=== PATIENT | male | born 1935 | race Caucasian/White ===

== ENCOUNTER 2019-08-19 18:06 | Inpatient (IN) | payer OTHER, BC ==
[~2019-08-19] VITALS: Ht 182.9 cm; Wt 83.9 kg
[2019-08-19 18:12] VITALS: BP 101/53
[2019-08-19 18:58] LABS: ABSOLUTE NEUTROPHILS 6.7 thou/uL (1.4-8.2); BASOPHILS 0.3 % (0.0-2.0); HEMATOCRIT 42.1 % (42.0-52.0); HEMOGLOBIN 13.5 gm/dL (14.0-18.0); LYMPHOCYTES 4.6 % (24.0-44.0); MCH 30.7 pg (26.0-34.0); MCHC 32.1 g/dL (28.0-37.0); MCV 95.7 fL (80.0-100.0); MONOCYTES 7.5 % (1.0-8.0); PLATELET COUNT 175 thou/uL (150-400); POLYS 87.6 % (36.0-66.0); RDW 13.2 % (10.5-14.5); WBC 7.7 thou/uL (4.0-11.0)
[2019-08-19 19:44] LABS: CALCIUM 7.8 mg/dL (8.5-10.1); POTASSIUM 3.9 mmol/L (3.5-5.1)
[2019-08-19 19:51] LABS: ALBUMIN 2.6 g/dL (3.4-5.0); TOTAL BILIRUBIN 0.4 mg/dL (<0.1-1.0)
[2019-08-19 20:25] VITALS: BP 101/53
[2019-08-19 21:12] VITALS: BP 108/66
--- NOTE | 2019-08-20 05:42 | NUR ---
New p from the ER admitted with a dx of R lower lobe PNA. Pt is a&o to self. 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 pt is incont of bladder and bowel. staff to anticipate pt's need. pt answers to yes and no questions. no s/s of distress. fall prec in place. will cont to monitor
[2019-08-20] MEDS ORDERED: ONDANSETRON HCL4 M2 PO (07:53)
[2019-08-20] MEDS ORDERED: DOXAZOSIN MESYLA1 MG PO (07:54)
[2019-08-20] MEDS ORDERED: PACERONE 200 M200 M1 PO (07:54)
[2019-08-20] MEDS ORDERED: XARELTO15 MG PO (07:54)
[2019-08-20] MEDS ORDERED: DIVALPROEX SOD125 MG PO (07:54)
[2019-08-20] MEDS ORDERED: FLONASE 0.05%50 MCG NARES (07:55)
[2019-08-20] MEDS ORDERED: WELLBUTRIN 100100 MG PO (07:55)
[2019-08-20] MEDS ORDERED: LATANOPROST 0.2.5 ML OPHTHALMIC (07:55)
[2019-08-20] MEDS ORDERED: DIVALPROEX SOD125 M1 PO (07:56)
[2019-08-20 08:00] VITALS: BP 122/67
--- NOTE | 2019-08-20 13:46 | NUR ---
PT A&OX4, VSS, DENIES PAIN. ANTIBIOTICS GIVEN ORDER. PATIENT HAS EXTERNAL CATH. PT/OT IN TO WORK WITH PATIENT. NO SIGNS OF DISTRESS. WILL CONTINUE TO MONITOR.
[2019-08-20 15:00] VITALS: BP 129/60
[2019-08-20 19:44] VITALS: BP 129/74
--- NOTE | 2019-08-20 19:45 | NUR ---
PT DOES NOT LIKE PUREED DIET AND IS EATING ABOUT 15 PERCENT OF MEALS
[2019-08-20 21:16] LABS: URINE BILIRUBIN NEGATIVE (Negative); URINE BLOOD TRACE (Negative); URINE CLARITY SL CLOUDY; URINE COLOR YELLOW; URINE GLUCOSE-RANDOM* NEGATIVE (Negative); URINE KETONES TRACE (Negative); URINE LEUKOCYTES-REFLEX NEGATIVE (Negative); URINE NITRITE-REFLEX NEGATIVE (Negative); URINE PROTEIN (DIPSTICK) TRACE (Negative)
--- NOTE | 2019-08-21 03:08 | NUR ---
PT CARE ASSUMED AT 1915 WITH PT IN BED.PT IS ALERT BUT HAS EXPRESSIVE APHASIA.PT IS INCONTINENT TO B/B.PT WAS BLADDER SCANNED AND HAD MORE THAN 500ML .PT WAS STRAIGHT CATHETER AND HAD AN OUTPUT OF 500CC.PT APPEARED TO BE IN NO DISTRESS.WILL CONTINUE TO MONITOR PER POC
--- NOTE | 2019-08-21 07:18 | H ---
[facility] [place] [address] HISTORY AND PHYSICAL Name: NETTIE COLLINS Room #: 462-P [facility] IN M.R.#: [id number] Admission: 08/19/19 Attend Phys: Dixon Shearer MD Discharge: Date of : 33 Report #: [id number] THIS REPORT FOR: cc: Dixon Shearer MD,Dixon Shearer,Dixon STEVENS ~ CC: Dixon Shearer HISTORY OF PRESENT ILLNESS: The patient is an 84-year-old male who was brought to the Emergency Room for an episode of nausea and vomiting. In addition to fever, the patient has been having some malaise. The patient is not able to provide me with any information because of his underlying CVA with expressive aphasia. The patient is able to tell me by shaking his head yes and no. The patient indicated that he is not having any headache. He is not having any chest pain. He is not having any abdominal pain. He said that he has been having some coughing. PAST MEDICAL HISTORY: Significant for cerebral infarct with right hemiparesis, dysphagia, aphasia, muscle weakness, difficulty walking, bipolar disorder, and glaucoma. The patient has a history of atrial fibrillation. MEDICATIONS: Reviewed and reconciled. ALLERGIES: No known drug allergies. SOCIAL HISTORY: The patient denies any smoking, alcohol use or drug use. FAMILY HISTORY: Unobtainable. REVIEW OF SYSTEMS: Negative besides what was mentioned above. PHYSICAL EXAMINATION: VITAL SIGNS: On arrival to the hospital showed a temperature of 99.9, pulse 73, respirations 23, blood pressure 101/53. HEAD: Unremarkable. NEUROLOGIC: The patient has wet mucous membrane. He does not have any drainage coming from the ears or nose. NECK: Supple. LUNGS: Clear to auscultation with very poor respiratory effort. CARDIAC: S1, S2, without any murmur or gallop. ABDOMEN: Benign. No tenderness, no rigidity, no rebound tenderness. EXTREMITIES: Without any edema. The patient has flaccid right side. LABORATORY DATA: The patient's CBC with diff showed white count of 7.7, hemoglobin 13.5, hematocrit 42.1, platelet count 175, neutrophils are 87%. Troponin less than 0.06. Lactic acid is 2.1. The patient's chest x-ray showed hazy interstitial and airspace opacities are seen on the right lower lung zone [address] [address] HISTORY AND PHYSICAL Name: NETTIE COLLINS Room #: 462-P [facility] IN [facility]#: [id number] Admission: 08/19/19 Attend Phys: Dixon Shearer MD Discharge: Date of : 33 Report #: [id number] compatible with pneumonia. The patient's metabolic panel showed a sodium of 143, potassium 3.9, chloride 108, bicarbonate 31, anion gap 4, BUN 31, creatinine 1, glucose 107, AST 66, calcium 7.8, total protein 5, albumin 2.6. Influenza A and B was negative. Repeated lactic acid is 1.1. ASSESSMENT AND PLAN: 1. Right lower lobe pneumonia. 2. Status post cerebrovascular accident with right hemiparesis. 3. Atrial fibrillation. 4. Glaucoma. The patient was admitted to the hospital with the above-mentioned diagnoses. The patient will be started on Zosyn in addition to IV hydration. The patient to have repeated blood test in the morning. The patient to start physical therapy, occupational therapy and speech therapy. We will resume the patient's home medications. I will go ahead and do a KUB on the patient because of his nausea and vomiting that started. <ELECTRONICALLY SIGNED> By: Dixon Shearer MD 08/21/19 0718 [id number] Dixon Shearer MD /nt
[2019-08-21 07:56] VITALS: BP 118/60
[2019-08-21 15:29] VITALS: BP 123/64
--- NOTE | 2019-08-21 20:17 | NUR ---
PATIENT ALERT AND ORIENTED TO SELF AND HAS DIFFICUTLY SPEAKING AND SEEMS TO UNDERSTAND AND FOLLOWS COMMANDS. THIS IS A VERY PLEASANT GENTLEMAN WHO SOMETIMES GETS VERY FRUSTRATED WHEN TRYING TO EXPRESS HIMSELF AND USES HAND GESTURES. SPOKE WITH PATIENT SPOUSE X 2 TODAY AND LEFT SEVERAL MESSAGES WITH SON, GIO REGARDING PATIENT MOVING TO NEW ROOM, 445.
[2019-08-21 20:25] VITALS: BP 122/55
--- NOTE | 2019-08-22 03:28 | NUR ---
ASSESSED AT START OF SHIFT. PT IS A&OX1 TO SELF. ANSWERS TO YES OR NO QUESTIONS AND USES HAND GESTURES WHILE FUSTRATED. HAS EXPRESSIVE APHASIA DUE TO HX OF CVA. PT IS INCONITINENT OF B/B HAD X4 INCOONTINENCE THIS SHIFT. PULLED OUT IV. NEW IV INSERTED IN LFT UA 22 G. IV INTACT AND FLUIDS INFUISING. CRTICAL LAB RESULT CALLED FOR GRAM + COCCI DR LI AWARE STATED TO CONT ZOSYN ADMINISTRATION. PT ON PURED DIET AND TAKES PILLS WITH APPLE SAUCE. FALL PREC IN PLACE AND WILL CONT TO MONITOR TILL EOS.
[2019-08-22 05:55] VITALS: BP 121/60
[2019-08-22 08:00] VITALS: BP 136/74
[2019-08-22 09:35] LABS: HEMATOCRIT 38.3 % (42.0-52.0); HEMOGLOBIN 12.5 gm/dL (14.0-18.0); MCHC 32.6 g/dL (28.0-37.0); MCV 95.1 fL (80.0-100.0); PLATELET COUNT 130 thou/uL (150-400); RBC 4.02 mil/uL (4.50-6.00); RDW 13.5 % (10.5-14.5); WBC 3.9 thou/uL (4.0-11.0)
[2019-08-22 09:38] LABS: CALCIUM 7.7 mg/dL (8.5-10.1); CREATININE 0.7 mg/dL (0.7-1.3); POTASSIUM 3.9 mmol/L (3.5-5.1)
[2019-08-22 10:42] LABS: ABSOLUTE NEUTROPHILS 2.6 thou/uL (1.4-8.2); PLATELET ESTIMATE NORMAL
--- NOTE | 2019-08-22 14:59 | NUR ---
PT ADMITTED RELATED TO PNEUMONIA,FEVER. CM REVIEWED CHART AND SPOKE WITH CARE TEAM. CM CALLED AND SPOKE WITH PT'S SPOUSE WHO WAS LISTED ON SHEETS SPOKESPERSON #1 OUSMANE SHE RESIDES AT [facility]. SHE INDICATED THAT [facility]. SHE STATED THAT PT HAD 2 STROKES AND THAT SHE ISN'T PLEASED WITH THE CARE AND CONDITIONS FOR PT AT [facility]. SHE INDICATED THAT SON AND DTR ARE INVOLVED IN THEIR CARE. CM CALLED PT'S SON JOSIANE WHO IS LISTED DPOA AND LEFT VM. CM CALLED AND SPOKE WITH PT'S DTR VERONIKA AND SHE INDICATED THAT JOSIANE IS THEIR PARENTS GUARDIAN AND MAKES DESISIONS. CM AWAITING RESPONSE. CM TO FOLLOW INDICATED WITH DC PLANNING.
[2019-08-22 15:45] VITALS: BP 119/66
--- NOTE | 2019-08-22 19:50 | NUR ---
PT A&OX2. RIGHT SIDE WEAKNESS NOTED WITH FACIAL DROOP AND EXPRESSIVE APHASIA. IV WAS REPLACED IN L FA AFTER PT PULLED OUT THE PRIOR. IS INCONT. OF B/B. CONDOM CATH WAS PLACED.
--- NOTE | 2019-08-22 23:18 | NUR ---
CONTACTED PHARMACY ABOUT MEDS WHICH NEED TO BE CRUSHED, WILL HOLD FLOMAX FOR NOW PENDING SUBSTITUTION, AND PHARMACY WILL SEND ORAL SUSPENSION OF ABX.
[2019-08-22 23:30] VITALS: BP 116/53
[2019-08-23 05:00] VITALS: BP 123/71
--- NOTE | 2019-08-23 05:29 | NUR ---
PT AOX1,SELF. PT DENIES PAIN AND SOA. PT NOTED TO BE IRRITABLE AT BEGINNING OF SHIFT WHEN ATTEMPTING TO COMMUNICATE. PROVIDED COMMUNICATION BOARD DUE TO PT EXPRESSIVE APHASIA. PT TOLERATING PO INTAKE OF NECTAR THICK FLUIDS ON PUREED DIET. PT TAKING PO MEDS CRUSHED IN APPLESAUCE. PT CONTINUES TO REST IN BED. ENCOURAGED FREQUENT REPOSITIONING. PT NOTED TO REST WITHOUT INTERRUPTION OR OBSERVATION OF PAIN OR DISCOMFORT. ENCOURAGED PT TO NOTIFY STAFF FOR ALL NEEDS AND CONCERNS. ROOM REMAINS CLOSE TO NURSES STATION. CALL LIGHT WITHIN REACH, BED ALARM ON, BED IN LOWEST POSITION. WILL CONTINUE TO MONITOR.
[2019-08-23] MEDS ORDERED: AUGMENTIN400 MG/53 PO (07:30)
[2019-08-23] MEDS ORDERED: FLOMAX0.4 MG PO (07:31)
[2019-08-23] MEDS ORDERED: DEPAKOTE SPRIN125 MG PO (07:32)
[2019-08-23] MEDS ORDERED: CULTURELLE KID1 EAC1 PO (07:33)
[2019-08-23 08:25] VITALS: BP 136/63
[2019-08-23 08:44] VITALS: BP 136/63
--- NOTE | 2019-08-23 12:25 | NUR ---
PT DISCHARGING TODAY TO [facility] FOR SKILLED STAY FAXED DC ORDERS/SUMMARY TO FACILITY SPOKE WITH NOMAN IN ADM. SHE RECEIVED DC ORDERS AND [facility]. LEFT MSG WITH PT'S SON (GIO) OF DC AND TIME OF TRANSPORT AND TO CALL ME TO CONFIRM HE GOT MESSAGE. UNIT NOTIFIED AND CHART COPY PER US RN TO CALL REPORT [phone].
--- NOTE | 2019-08-23 12:27 | NUR ---
PT DISCHARGIN TODAY TO [facility] SPOKE WITH NOMAN IN ADM SHE RECEIVED ORDERS AND ARRANGED TRANSPORT BY [facility] FOR 1400 TODAY. NOTIFIED PT'S SON (GIO) OF DC AND TIME OF TRANSPORT AND TO CALL ME BACK TO CONFIRM HE GO MY MESSAGE. UNIT NOTIFIED AND CHART COPY PER US. RN TO CALL REPORT TO [phone].
--- NOTE | 2019-08-23 13:52 | NUR ---
CARE TEAM INDICATED THAT PT IS MEDICALLY STABLE TO DISCHARGE TO [facility] THIS DAY. CHART COPY ORDERED. ORDERS FAXED. DC DEPOSIT CLERK NOTIFIED PT'S GUARDIAN/SON. [facility] TRANSPORT ARRANGED FOR 1400. NURSE GIVEN NUMBER FOR REPORT. NO OTHER CM INTERVENTION INDICATED. CASE CLOSED.
--- NOTE | 2019-08-23 14:30 | NUR ---
DC ORDERS RECEIVED. IV REMOVED FROM L FA. CHART COPY AND ORDERS SENT WITH PT. REPORT CALLED TO NURSE VIZCAINO AT [facility]. NURSE WAS AWARE OF OPEN AREAS TO SACRUM AND BUTTOCK. KEMAR NIETO PICKED UP PT.
== END 2019-08-23 16:13 | DRG 178 ==
LOC: ER 18:06 → 4S 19:51 → EROBS 19:51 → 4W 20:54 → 4S 08-21 17:47
PROVIDERS: Emergency Medicine Emergency Medical Services; ADMIT Internal Medicine
DX: J69.0 Pneumonitis due to inhalation of food and vomit (principal); I69.351 Hemiplegia and hemiparesis following cerebral infarction affecting right dominant side; E44.0 Moderate protein-calorie malnutrition; R33.9 Retention of urine, unspecified; K59.00 Constipation, unspecified; F31.9 Bipolar disorder, unspecified; H40.9 Unspecified glaucoma; I48.91 Unspecified atrial fibrillation; Z79.01 Long term (current) use of anticoagulants; Z79.899 Other long term (current) drug therapy; I69.320 Aphasia following cerebral infarction; I69.391 Dysphagia following cerebral infarction; R13.10 Dysphagia, unspecified
CPT/HCPCS: 10040; 10195

== ENCOUNTER 2019-09-08 15:48 | Inpatient (IN) | payer OTHER, BC ==
[~2019-09-08] VITALS: Ht 177.8 cm; Wt 60.4 kg
--- NOTE | ~2019-09-08 | EMS ---
[address] [address] EMS Patient Care Report Name: NETTIE COLLINS Room #: REG [facility] [place]#: [id number] Admission: 09/08/19 Attend Phys: Discharge: Date of : 33 Report #: [id number] THIS REPORT FOR: //name// Report Transmitted: 09/08/2019 16:10 EMS Care Summary [place], [place] Incident [id number] @ 09/08/2019 15:11 Incident Location [address] Patient NETTIE COLLINS Male, 84 Years 1935 Patient Address [address] [place] [address] Patient History Hypertension (HTN),Urinary Tract Infection (UTI), Patient Allergies No known allergies, Chief Complaint ALTERED MENTAL STATUS Disposition Transported No Lights/Nova Dispatch Reason Breathing Problem Transported To [facility] Narrative ARRIVED ON SCENE AT A CUSTODIAL FOR A 84 YEAR OLD MALE WITH ALTERED MENTAL STATUS AND A FEVER. EMS WAS CALLED FOR FEVER, COUGH, AND SHORTNESS OF BREATH SINCE LAST NIGHT. PUMPER AND EMS ARRIVED ON SCENE. EMS MADE ENTRY IN PROPER PPE TO MITIGATE POTENTIAL EXPOSURES. PT CONTACT WAS MADE WITH FACILITY STAFF. PT HAD AN ALTERED MENTAL STATUS AND WAS UNABLE TO COMMINUICATE WITH EMS BUT [address] [address] EMS Patient Care Report Name: NETTIE COLLINS Room #: REG [facility] [place]#: [id number] Admission: 09/08/19 Attend Phys: Discharge: Date of : 33 Report #: [id number] FACILITY STAFF STATED THIS WAS HIS NORMAL. PT WAS NOT COUGHING AND SHOWED NO SIGNS OF RESIRATORY DISTRESS ON SCENE. PT HAD CLEAR LUNG SOUNDS AND WAS BREATHING AT A NORMAL RATE. EMS CLEARED THE PUMPER TO GO BACK INTO SERVICE. PT WAS TRANSFERED OVER TO THE COT IN A POSITION OF COMFORT AND SECURED VIA 2 SEATBELTS. PT HAD A MASK PLACED ON HIM AND WAS HOOKED UP TO THE MONITOR FOR A SET OF BASELINE VITALS AND TRANSPORTED TO AND INTO THE AMBULANCE. PT WAS TRANSPORTED TO [facility] PER PT CHOICE WITH NO CHANGES EN ROUTE. PT WAS TAKEN TO ER BED 21 WHERE TRANSPORT REPORT WAS GIVEN TO THE RECEIVING STAFF. ER NURSE SIGNED FOR TRANSFER OF CARE AND EMS WENT BACK INTO SERVICE. Initial Vitals @15:39P: 77,R: 18,BP: 148/74,Pain: 0/10,GCS: 10,CO: 5,SpO2: 95,Revised Trauma: 11,KS Suspected: false @15:29P: 73,R: 18,BP: 156/76,Pain: 0/10,GCS: 10,Glucose: 96,CO: 9,SpO2: 96,Revised Trauma: 11,KS Suspected: false Assessments @15:24MENTAL:No Abnormalities,SKIN:HEENT:Eyes: Right Pupil: 3-mm,Eyes: Left Pupil: 3-mm,Head/Face: No Abnormalities,Neck/Airway: No Abnormalities,LUNG SOUNDS:General: No Abnormalities,ABDOMEN:General: No Abnormalities,PELVIS//GI:No Abnormalities,EXTREMITIES:Left Arm: No Abnormalities,Right Arm: No Abnormalities,Left Leg: No Abnormalities,Right Leg: No Abnormalities,PULSE:NEURO:No Abnormalities,@15:35 Impression Altered Mental Status Procedures @15:24ALS AssessmentResponse: UnchangedSucceeded@15:33Saline Lock 0cc (18 ga) Site: Antecubital-LeftResponse: UnchangedFailed Timeline 15:10,Call Received 15:10,Dispatch Notified 15:11,Dispatched 15:12,En Route 15:19,On Scene 15:24,At Patient 15:24,ALS Assessment,Response: UnchangedSucceeded, 15:29,BP: 156/76 M,PULSE: 73,RR: 18 R,SPO2: 96 Ox,ETCO2: ,B,PAIN: 0,GCS: 10, 15:33,Saline Lock 0cc 18 ga Site: Antecubital-Left,Response: UnchangedFailed, 15:34,Depart Scene 15:39,BP: 148/74 M,PULSE: 77,RR: 18 R,SPO2: 95 Ox,ETCO2: ,BG: ,PAIN: 0,GCS: 10, 15:40,At Destination 15:43,Call Closed [facility] [address] [place] [address] EMS Patient Care Report Name: NETTIE COLLINS Room #: REG [place]#: [id number] Admission: 09/08/19 Attend Phys: Discharge: Date of : 33 Report #: [id number] Disclaimer v1.1 Copyright 2020 [employer] This EMS Care Summary contains data elements from the applicable legal record (which may be displayed differently). It is designed to provide pertinent information for the following purposes: continuity of care, clinical quality, and state data reporting. The complete legal record is available to ED staff and administrators of the receiving hospital in [employer]'s Patient Tracker. All data is provided "as is."
[~2019-09-08 15:48] MED LIST: AUGMENTIN400 MG/53 PO; CULTURELLE KID1 EAC1 PO; DEPAKOTE SPRIN125 MG PO; DIVALPROEX SOD125 M1 PO; DIVALPROEX SOD125 MG PO; DOXAZOSIN MESYLA1 MG PO; FLOMAX0.4 MG PO; FLONASE 0.05%50 MCG NARES; LATANOPROST 0.2.5 ML OPHTHALMIC; ONDANSETRON HCL4 M2 PO; PACERONE 200 M200 M1 PO; WELLBUTRIN 100100 MG PO; XARELTO15 MG PO
[2019-09-08 15:54] VITALS: BP 129/62
[2019-09-08 16:32] LABS: HEMATOCRIT 37.2 % (42.0-52.0); HEMOGLOBIN 12.4 gm/dL (14.0-18.0); MCH 31.6 pg (26.0-34.0); MCHC 33.4 g/dL (28.0-37.0); MCV 94.8 fL (80.0-100.0); PLATELET COUNT 203 thou/uL (150-400); RBC 3.92 mil/uL (4.50-6.00); RDW 13.9 % (10.5-14.5); WBC 4.6 thou/uL (4.0-11.0)
[2019-09-08 16:40] LABS: CALCIUM 8.5 mg/dL (8.5-10.1); CREATININE 0.9 mg/dL (0.7-1.3); POTASSIUM 3.9 mmol/L (3.5-5.1)
[2019-09-08 16:46] LABS: DIRECT BILIRUBIN 0.1 mg/dL (<0.1-0.2); TOTAL BILIRUBIN 0.4 mg/dL (<0.1-1.0); TOTAL PROTEIN 5.8 g/dL (6.4-8.2)
[2019-09-08 16:56] LABS: ABSOLUTE NEUTROPHILS 3.5 thou/uL (1.4-8.2); PLATELET ESTIMATE NORMAL
[2019-09-08 17:46] LABS: URINE BILIRUBIN NEGATIVE (Negative); URINE BLOOD TRACE (Negative); URINE CLARITY CLEAR; URINE COLOR YELLOW; URINE GLUCOSE-RANDOM* NEGATIVE (Negative); URINE KETONES TRACE (Negative); URINE LEUKOCYTES-REFLEX NEGATIVE (Negative); URINE NITRITE-REFLEX NEGATIVE (Negative); URINE PROTEIN (DIPSTICK) NEGATIVE (Negative); URINE SPECIFIC GRAVITY >= 1.030 (1.005-1.035); URINE UROBILINOGEN 0.2 E.U./dl (0.2-1.0)
[2019-09-08 18:53] VITALS: BP 128/77
[2019-09-08 19:15] VITALS: BP 114/84
[2019-09-08 19:41] VITALS: BP 120/68
[2019-09-08] MEDS ORDERED: SENNA PLUS TAB1 EACH PO (20:40)
[2019-09-09 03:26] VITALS: BP 121/73
--- NOTE | 2019-09-09 03:51 | NUR ---
ASSUMED CARE OF PATIENT AT 1930. COMPLETED ADMISSION HISTORY AND ASSESSMENT. INITIATED PATIENT CARE PLAN. PATIENT HAS LOW GRADE TEMP OF 99.3. NO SOA OBSERVED AND OXYGEN SATURATION IS BETWEEN 96-98% ON RA. PLACED AN EXTERNAL CATHETER FOR ACCURATE I&O.
[2019-09-09 08:20] VITALS: BP 133/66
[2019-09-09 11:35] VITALS: BP 143/72
--- NOTE | 2019-09-09 13:16 | NUR ---
INITIAL ASSESSMENT: Received consult. SUMEET reviewed chart and spoke with nursing. Pt was admitted from [facility] due to fevers. Pt is currently in Enhanced Isolation to r/o COVID-19. Pt with positive blood cultures. Pt is nonverbal. SUMEET left voice message or pt's son, Jhonny, to provide update and discuss discharge plan. product planner faxed clinical info to [facility] for review. SUMEET confirmed with Ana in admissions, that [facility] is able to accept pt back over the weekend if pt is medically stable for discharge. ameya will need COVID-19 results faxed to them, as well as the finalized discharge orders/summary. Staff to contact Ana over the weekend to coordinate discharge. SUMEET is available to assist as needed with discharge planning. JERAMIE-- (Ana) Report: [phone]
--- NOTE | 2019-09-09 13:28 | NUR ---
FAXED CLINICAL UPDATE TO JERAMIE DELEON SPOKE WITH NOMAN IN ADM SHE RECEIVED UPDATE. DP TO FOLLOW.
[2019-09-09 16:42] VITALS: BP 107/62
--- NOTE | 2019-09-09 18:49 | NUR ---
ASSUMED CARE AT 0700. SPOKE TO PRISCILLA FROM [facility] THIS AM. CONFIRMED THAT PT WAS POSITIVE FOR INFLUENZA B AND NOT INFLUENZA A REPORTED. SHE REPORTED THAT PT WAS NEGATIVE FOR RSV. THIS RN INFORMED PRISCILLA THAT PT HAS BEEN SWABBED FOR COVID-19 AND WAITING FOR RESULTS. DHEERAJ, RN SPOKE TO DR. LI THIS AM REGARDING GRAM POSITIVE BLOOD CULTURES. AZITHROMYCIN AND ROCEPHIN GIVEN PER ORDERS. PT HAS BEEN FEBRILE THIS SHIFT AND GIVEN TYLENOL PER ORDERS. PT HAS BEEN AFEBRILE AFTER NOON VITALS. PT'S SON, GIO UPDATED ON PT'S STATUS. PT ON ROOM AIR AND HAS SHOWN NO SIGNS OF DYSPNEA OR RESPIRATORY DISTRESS THIS SHIFT. HAS TOLERATED MEALS WITH PUREED DIET. STILL WAITING FOR COVID-19 RESULTS. PT SLOWLY PROGRESSING TOWARDS PLAN OF CARE GOALS. WILL CONTINUE TO MONITOR.
[2019-09-09 21:20] VITALS: BP 134/69
--- NOTE | 2019-09-10 04:55 | NUR ---
ASSUMED PT CARE AT 1900 PT IS ALERT, AND NON-VERBAL. NO SIGN OF DISTRESS NOTED IN PT. FEVER NOTED UPON VITALS. ASSESSMENT COMPLETED AND DOCUMENTED. FALL PRECAUTION IN PLACE. ISOLATION PLACE. SCHEDULED MEDS ADMINISTERED TO PT. TOLERATED PO INTAKE. CONTINUE TO MONITOR PT. DENIES ANY FURTHER NEEDS AT THIS TIME.
[2019-09-10 05:50] VITALS: BP 117/69
[2019-09-10 06:08] LABS: HEMATOCRIT 40.4 % (42.0-52.0); HEMOGLOBIN 13.2 gm/dL (14.0-18.0); MCH 31.2 pg (26.0-34.0); MCHC 32.6 g/dL (28.0-37.0); MCV 95.7 fL (80.0-100.0); RBC 4.22 mil/uL (4.50-6.00); RDW 14.2 % (10.5-14.5); WBC 4.3 thou/uL (4.0-11.0)
[2019-09-10 06:16] LABS: CALCIUM 7.9 mg/dL (8.5-10.1); CREATININE 0.8 mg/dL (0.7-1.3); POTASSIUM 3.7 mmol/L (3.5-5.1)
[2019-09-10 08:34] VITALS: BP 126/76
[2019-09-10 17:05] VITALS: BP 134/71
--- NOTE | 2019-09-10 18:26 | NUR ---
assumed care of pt at 0700. pt alert, non verbal, in no apparent distress. occasionally calls out without demands. able to follow simple commands. incontinent. cleaned and turned q2h. afebrile. vitals stable. pt progressing towrad aria abarca.
[2019-09-10 20:06] VITALS: BP 123/72
--- NOTE | 2019-09-11 02:46 | NUR ---
attempted to crawl out of bed when he was urinating in condom catheter. got into room in plenty of time to help him redirect and stay in the bed. i explained that he has a condom catheter on and showed him it works and he relaxed quickly. repositioned him and pulled up in the bed. reassured him and left the light on, for his preference. he is good about using the thumbs up sign when he is in agreement. careplan reviewed. denies pain. he is back to resting and is comfortable.
[2019-09-11 04:55] VITALS: BP 132/73
[2019-09-11 08:20] VITALS: BP 102/69
[2019-09-11 12:30] VITALS: BP 95/60
[2019-09-11 16:30] VITALS: BP 121/64
--- NOTE | 2019-09-11 16:33 | NUR ---
pt is unverbal to talk, but pt can understand and follow some commands, pt is continuing iv abx , and isolation to R/O COVID , PT'VS are stable , no fever, pt needs help meals and ADL, pt denies pain at this time.
[2019-09-11 20:20] VITALS: BP 111/73
--- NOTE | 2019-09-12 03:10 | NUR ---
dialed phone for him tonight, so that he could listen to his . he has been calm and cooperative. denies pain. he assist turning side to side. condom catheter staying in place and keeping him dry. careplan reviewed.
[2019-09-12 05:10] VITALS: BP 112/69
[2019-09-12 06:16] LABS: HEMATOCRIT 39.1 % (42.0-52.0); MCH 31.2 pg (26.0-34.0); MCHC 33.2 g/dL (28.0-37.0); MCV 94.2 fL (80.0-100.0); PLATELET COUNT 145 thou/uL (150-400); RBC 4.15 mil/uL (4.50-6.00); WBC 3.7 thou/uL (4.0-11.0)
[2019-09-12 06:38] LABS: ALBUMIN 2.5 g/dL (3.4-5.0); CALCIUM 7.8 mg/dL (8.5-10.1); CREATININE 0.7 mg/dL (0.7-1.3); POTASSIUM 3.7 mmol/L (3.5-5.1); TOTAL BILIRUBIN 0.5 mg/dL (<0.1-1.0); TOTAL PROTEIN 5.2 g/dL (6.4-8.2)
[2019-09-12 07:52] VITALS: BP 109/75
[2019-09-12 08:18] LABS: ABSOLUTE NEUTROPHILS 2.1 thou/uL (1.4-8.2); PLATELET ESTIMATE NORMAL
--- NOTE | 2019-09-12 11:35 | NUR ---
PT IS UNVERBAL ( DYSPHAGIA), BUT PT CAN FOLLOW MOST OF COMMANDS, PT'S VS ARE STABLE, PT IS CONTINUING IV ABX, PT NEEDS HELP MEALS AND ADL, PT 'S COVID TEST RESULT IS NEGATIVE, BUT PT IS CONTINUING DROPET ISOLATION FOR INFLU A POSITIVE AT [facility], RN HAS UPDATED PT'S INFORMATION TO PT'S SON, PT IS GOING TO 4S ROOM 443.
--- NOTE | 2019-09-12 11:56 | NUR ---
SUMEET reviewed chart and spoke with nursing. Results of COVID-19 test is negative. Pt to move to later today. SUMEET spoke with pt's son, Jhonny, via phone to provide update and notify of room move. Jhonny confirms plan is for pt to return to [facility] when medically stable. SUMEET faxed clinical updates/COVID-19 results to [facility] and notified Ana in admissions. SUMEET is following to assist as needed with discharge planning.
[2019-09-12 19:30] VITALS: BP 107/56
--- NOTE | 2019-09-13 04:28 | NUR ---
RECIEVED CARE OF THIS PATIENT AT 1900. PATIENT ALERT AND ORIENTED XSELF. REMAINS IN ISO FOR THE FLU. HAS DYSPHAGIA AND NOT ABLE TO COMMUNICATE VERY WELL. MOANS AND GRUNTS. CAN ANSWER YES/NO QUEATIONS. HAS EXTERNAL CATH THAT IS PATENT. 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 BADREST WITH TURN Q2. SLEPT MOST OF THE NIGHT.
[2019-09-13 04:35] VITALS: BP 91/49
[2019-09-13] MEDS ORDERED: TAMIFLU30 MG PO (07:29)
[2019-09-13 08:00] VITALS: BP 119/71
--- NOTE | 2019-09-13 11:00 | NUR ---
PER RN, Pt DISCHARGING TODAY TO HIS LTC. PER RN STATEMENTS AND CHART REVIEW, Pt IS DEPENDENT WITH ADL AND TRANSFERS, WHICH APPEARS TO BE PRIOR LEVEL OF FUNCTION AT LTC. IF Pt IS NOT DISCHARGED TODAY, CAN PERFORM AN ASSESSMENT IF NEEDED.
--- NOTE | 2019-09-13 12:38 | NUR ---
CARE TEAM INDICATED THAT PT IS MEDICALLY STABLE TO DISCHARGE TO [facility] SKILLED THIS DAY. CM CALLED AND NOTIFIED PT'S SON HE IS AWARE AND AGREEABLE. CM SENT ORDERS TO [facility] THEY WILL RESPOND AND INDICATED WHEN THEY ARE ABLE TO ARRANGE [facility]. CHART COPY ORDERED. AWAITING TIME OF TRANSPORT.
--- NOTE | 2019-09-13 16:37 | NUR ---
DC ORDERS RECEIVED. IV REMOVED FROM L AC. CHART COPIED, SCRIPT SENT WITH CHART. CM NOTIFIED SON. KEMAR NIETO PICKED UP PT. REPORT CALLED TO JERAMIE AND GAVE REPORT TO NURSE CARRILLO.
== END 2019-09-13 16:37 | DRG 178 ==
LOC: ER 15:48 → EROBS 18:13 → 3W 18:13 → 4S 09-12 14:09
PROVIDERS: Emergency Medicine; Nurse Practitioner Adult Health; ADMIT Internal Medicine
DX: J69.0 Pneumonitis due to inhalation of food and vomit (principal); I69.351 Hemiplegia and hemiparesis following cerebral infarction affecting right dominant side; F01.50 Vascular dementia, unspecified severity, without behavioral disturbance, psychotic disturbance, mood disturbance, and anxiety; F32.9 Major depressive disorder, single episode, unspecified; R13.10 Dysphagia, unspecified; I48.91 Unspecified atrial fibrillation; R50.9 Fever, unspecified; Z66 Do not resuscitate; Z20.828 Contact with and (suspected) exposure to other viral communicable diseases; I69.320 Aphasia following cerebral infarction; Z79.899 Other long term (current) drug therapy; Z79.01 Long term (current) use of anticoagulants
CPT/HCPCS: 10080; 10195